=== PATIENT | male | born 1955 | race Caucasian/White ===

== ENCOUNTER 2022-04-16 17:09 | Inpatient (IN) | payer BC, MEDICARE ==
[2022-04-16 17:48] VITALS: BMI 27.9
[2022-04-16] MEDS ORDERED: Guaifenesin DM 100-10/5 ML UDCUP PO PRN (19:32)
[2022-04-16] MEDS ORDERED: Acetaminophen 325 MG TAB PO PRN (19:32)
[2022-04-16] MEDS ORDERED: HYDROcodone/Acetaminophen 5/325 mg Tablet PO PRN (19:32)
[2022-04-16] MEDS ORDERED: Senokot S 8.6-50 MG TAB PO PRN (19:32)
[2022-04-16] MEDS ORDERED: Zolpidem Tartrate 5 MG TAB PO PRN (19:32)
[2022-04-16] MEDS ORDERED: Ondansetron PF 4 MG/2 ML Vial IVP PRN (19:32)
[2022-04-16] MEDS ORDERED: Calcium Carbonate 500 MG ChewTAB PO PRN (19:32)
[2022-04-16] MEDS ORDERED: Cyclobenzaprine 10 MG TAB PO SCH (20:30)
[2022-04-16] MEDS ORDERED: predniSONE 20 MG TAB PO SCH (20:30)
[2022-04-16 20:41] LABS: CK (CPK) Less than 9 U/L (30-200)
[2022-04-16] MEDS: Amlodipine 5 MG TAB PO SCH (20:58)
[2022-04-16] MEDS: Rosuvastatin 20 MG TAB PO SCH (20:59)
[2022-04-16] MEDS: Nicotine 14 MG PATCH TD SCH (20:59)
[2022-04-16] MEDS: Ezetimibe 10 MG TAB PO SCH (20:59)
[2022-04-17] MEDS: Amlodipine 5 MG TAB PO SCH ×2 (08:02→20:26)
[2022-04-17] MEDS: Enoxaparin Sodium 40 MG/0.4 ML SYRINGE SC SCH (08:02)
[2022-04-17] MEDS ORDERED: Magnevist 469MG/ML 20 ML VIAL ONE (09:37)
[2022-04-17] MEDS ORDERED: hydrALAZINE 20 MG/ML VIAL SLOW IVP PRN (14:15)
[2022-04-17] MEDS ORDERED: Aspirin 81 mg Enteric Coated Tablet PO SCH (15:00)
[2022-04-17] MEDS: Rosuvastatin 20 MG TAB PO SCH (20:27)
[2022-04-17] MEDS: Ezetimibe 10 MG TAB PO SCH (20:27)
[2022-04-17] MEDS: Nicotine 14 MG PATCH TD SCH (20:32)
[2022-04-18 06:32] LABS: Cardiac Risk 4.2 (Less than 4.5)
[2022-04-18] MEDS: Amlodipine 5 MG TAB PO SCH (08:37)
[2022-04-18] MEDS: Enoxaparin Sodium 40 MG/0.4 ML SYRINGE SC SCH (08:37)
[2022-04-18] MEDS ORDERED: Aspirin 81 mg Enteric Coated Tablet PO SCH (09:00)
[2022-04-18 12:15] LABS: Hemoglobin A1c 5.7 % (4.0-6.0)
[2022-04-18 15:44] VITALS: BP 147/74; TEMP 98.2
== END 2022-04-18 16:32 | disposition home or self-care (01) | DRG 66 ==
LOC: CSHTELE 17:09 → INTOOBSV 17:09 → OBSVTOIN 04-17 14:02
PROVIDERS: ADMIT Family Medicine; ATTEND Family Medicine
DX: I63.9 Cerebral infarction, unspecified (principal); Z20.822 Contact with and (suspected) exposure to COVID-19; I25.10 Atherosclerotic heart disease of native coronary artery without angina pectoris; E78.5 Hyperlipidemia, unspecified; I10 Essential (primary) hypertension; G89.29 Other chronic pain; G83.21 Monoplegia of upper limb affecting right dominant side; M85.08 Fibrous dysplasia (monostotic), other site; F17.210 Nicotine dependence, cigarettes, uncomplicated; M54.50 Low back pain, unspecified; H93.11 Tinnitus, right ear; Z85.46 Personal history of malignant neoplasm of prostate; Z79.899 Other long term (current) drug therapy; Z92.3 Personal history of irradiation; Z90.79 Acquired absence of other genital organ(s); Z98.1 Arthrodesis status; Z90.49 Acquired absence of other specified parts of digestive tract; Z80.0 Family history of malignant neoplasm of digestive organs
CPT/HCPCS: 36415; 70496; 70498; 70551; 72156; 80061; 82550; 83036; 83735; 84443; 93306; 96372; A9579; G0378; J1650; J7512; U0003; U0005